=== PATIENT | male | born 1950 | race Hispanic/Latino ===

== ENCOUNTER 2017-06-10 10:45 | Inpatient (IN) | payer MEDICARE ==
[~2017-06-10] VITALS: Ht 170.2 cm; Wt 81.8 kg
[2017-06-10] MEDS ORDERED: SODIUM CHLORIDE 0.9% 1000ML 1,000 ML IV STA (11:19)
[2017-06-10] MEDS ORDERED: ONDANSETRON HCL INJ 2 MG/ML VIAL IV STA (11:19)
[2017-06-10 11:50] LABS: BASOPHILS % 0.3 % (0.0-1.0); EOSINOPHILS # (AUTO) 0.1 (0.0-0.4); EOSINOPHILS % 1.8 % (0.0-6.0); HEMATOCRIT 32.5 % (38.2-49.6); HEMOGLOBIN 11.4 g/dL (14.0-18.0); LYMPHOCYTES # (AUTO) 1.2 (1.0-3.2); LYMPHOCYTES % 15.1 % (18.0-39.1); MEAN CORPUSCULAR HEMOGLOBIN 30.1 pg (28-32); MEAN CORPUSCULAR HGB CONC 35.1 g/dL (31-35); MEAN CORPUSCULAR VOLUME 85.8 fL (81-99); MONOCYTES # (AUTO) 0.6 (0.2-0.8); MONOCYTES % 8.4 % (4.4-11.3); NEUTROPHILS # (AUTO) 5.7 (2.1-6.9); NEUTROPHILS % 74.3 % (38.7-80.0); PLATELET COUNT 171 x10e3/uL (140-360); RED BLOOD COUNT 3.79 x10e6/uL (4.3-5.7); RED CELL DISTRIBUTION WIDTH 12.3 % (11.7-14.4)
[2017-06-10 12:11] LABS: ALBUMIN 3.1 g/dL (3.5-5.0); ALBUMIN/GLOBULIN RATIO 0.7 (0.8-2.0); ANION GAP 14.5 mmol/L (8-16); CALCIUM 8.9 mg/dL (8.4-10.2); CREATININE, SERUM 5.46 mg/dL (0.72-1.25); MAGNESIUM 1.8 MG/DL (1.3-2.1); POTASSIUM 4.5 mmol/L (3.5-5.1)
[2017-06-10 12:17] LABS: CREATINE KINASE MB 5.3 ng/mL (0-5.0)
--- NOTE | 2017-06-10 12:20 | Diagnostic Imaging Report ---
PROCEDURE: CHEST SINGLE (PORTABLE) COMPARISON: None. INDICATIONS: NAUSEA, VOMITING FINDINGS: LUNGS: There is mild pulmonary vascular congestion. Low lung volumes. PLEURA: No effusions or pneumothorax. HEART \T\ MEDIASTINUM: The heart is within normal size-limits. BONES \T\ SOFT TISSUES: No acute findings. CONCLUSION: Mild pulmonary vascular congestion. Anderson Blackburn D.O. Dictated by: Anderson Blackburn D.O. on 06/10/2017 at 12:21 Electronically approved by: Anderson Blackburn D.O. on 06/10/2017 at 12:21
--- NOTE | 2017-06-10 12:23 | Diagnostic Imaging Report ---
PROCEDURE: CT ABDOMEN AND PELVIS WITHOUT CONTRAST TECHNIQUE: The abdomen and pelvis were scanned utilizing a multidetector helical scanner from the diaphragm to the lesser trochanter. No IV contrast was administered. Coronal and sagittal multiplanar reformations were obtained. COMPARISON: None. INDICATIONS: STONE PROTOCOL. Nausea, vomiting, and abdominal pain for one week. FINDINGS: ABSENCE OF INTRAVENOUS CONTRAST DECREASES SENSITIVITY FOR DETECTION OF FOCAL LESIONS AND VASCULAR PATHOLOGY. LOWER THORAX: The heart is enlarged. There atherosclerotic calcifications of the coronary arteries. Mosaic attenuation of the lung bases may be related to air trapping. HEPATOBILIARY: No focal hepatic lesions. No biliary ductal dilatation. There has been a cholecystectomy. SPLEEN: No splenomegaly. PANCREAS: No focal masses or ductal dilatation. ADRENALS: No adrenal nodules. KIDNEYS/URETERS: No hydronephrosis, stones, or solid mass lesions. A small calcification in the interpolar region of the left kidney (series 401, image 64) is felt to represent a vascular calcification rather than a stone. PELVIC ORGANS/BLADDER: The prostate gland is mildly enlarged with dystrophic calcifications. PERITONEUM / RETROPERITONEUM: No free air or fluid. LYMPH NODES: No lymphadenopathy. VESSELS: Moderate atherosclerotic calcifications of the aorta and its branches. GI TRACT: No distention or wall thickening. BONES AND SOFT TISSUES: Postsurgical changes from laminectomy and fusion of L4-S1. IMPRESSION: No specific findings to account for the patient's symptoms. No renal or ureteral stones. Dictated by: Mg Weiss M.D. on 06/10/2017 at 12:24 Electronically approved by: Mg Weiss M.D. on 06/10/2017 at 12:24
[2017-06-10] MEDS ORDERED: SODIUM CHLORIDE FLUSH 10 ML SYR INJ PRN (13:00)
[2017-06-10] MEDS ORDERED: ONDANSETRON HCL INJ 2 MG/ML VIAL IV PRN (13:00)
[2017-06-10] MEDS ORDERED: ONDANSETRON HCL 4 MG ORAL DISINTEGRATING TAB PO PRN (13:00)
[2017-06-10] MEDS: FAMOTIDINE 20 MG/2 ML VIAL IV SCH (13:30)
[2017-06-10] MEDS ORDERED: ONDANSETRON HCL 4 MG ORAL DISINTEGRATING TAB PO ONE (13:30)
[2017-06-10] MEDS ORDERED: HYDRALAZINE HCL 20 MG/ML VIAL IV STA (13:41)
--- OUTSIDE RECORDS SUMMARY | 2017-06-10 13:45 | XMS REPORT ---
[facility] Address Unknown Phone Unavailable Care Team Providers Care Ham Sawyer Name Role Phone MIKAYLA BENITEZ Unavailable Unavailable Problems This patient has no known problems. Allergies, Adverse Reactions, Alerts This patient has no known allergies or adverse reactions. Medications This patient has no known medications. Results Test Description Test Time Test Comments Text Results Atomic Results Result Comments CHEST SINGLE (PORTABLE) [place] [address] Patient Name: CARLA MCCLURE SR, I MR #: [id number] : 1950 Age/Sex: 66/M Req #: [id number] Adm Physician: Ordered by: WIL RAMIREZ COMPENSATION ADVISOR Report #: [id number] Location: ER Room/Bed: Procedure: [id number] DX/CHEST SINGLE (PORTABLE) Exam Date: 06/10/17 Exam Time: 1158 REPORT STATUS: Signed PROCEDURE: CHEST SINGLE (PORTABLE) COMPARISON: None. INDICATIONS: NAUSEA, VOMITING FINDINGS: LUNGS: There is mild pulmonary vascular congestion. Low lung volumes. PLEURA: No effusions or pneumothorax. HEART T MEDIASTINUM: The heart is within normal size-limits. BONES T SOFT TISSUES: No acute findings. CONCLUSION: Mild pulmonary vascular congestion. Fanta Blackburn D.O. Dictated by: Fanta Blackburn D.O. on 06/10/2017 at 12:21 Electronically approved by: Fanta Blackburn D.O. on 06/10/2017 at 12:21 Dictated By: FANTA BLACKBURN DO 1221 Transcribed By: EULA on 06/10/17 1221 COPY TO: WIL RAMIREZ NP CT ABDOMEN/PELVIS WO [place] [address] Patient Name: CARLA MCCLURE SR, I MR #: [id number] : 1950 Age/Sex: 66/M Req #: [id number] Adm Physician: Ordered by: WIL RAMIREZ NP Report #: [id number] Location: ER Room/Bed: Procedure: [id number] CT/CT ABDOMEN/PELVIS WO Exam Date: 06/10/17 Exam Time: 1153 REPORT STATUS: Signed PROCEDURE: CT ABDOMEN AND PELVIS WITHOUT CONTRAST TECHNIQUE: The abdomen and pelvis were scanned utilizing a multidetector helical scanner from the diaphragm to the lesser trochanter. No IV contrast was administered. Coronal and sagittal multiplanar reformations were obtained. COMPARISON: None. INDICATIONS: STONE PROTOCOL. Nausea, vomiting, and abdominal pain for one week. FINDINGS: ABSENCE OF INTRAVENOUS CONTRAST DECREASES SENSITIVITY FOR DETECTION OF FOCAL LESIONS AND VASCULAR PATHOLOGY. LOWER THORAX: The heart is enlarged. There atherosclerotic calcifications of the coronary arteries. Mosaic attenuation of the lung bases may be related to air trapping. HEPATOBILIARY: No focal hepatic lesions. No biliary ductal dilatation. There has been a cholecystectomy. SPLEEN: No splenomegaly. PANCREAS: No focal masses or ductal dilatation. ADRENALS: No adrenal nodules. KIDNEYS/URETERS: No hydronephrosis, stones, or solid mass lesions. A small calcification in the interpolar region of the left kidney (series 401, image 64) is felt to represent a vascular calcification rather than a stone. PELVIC ORGANS/BLADDER: The prostate gland is mildly enlarged with dystrophic calcifications. PERITONEUM / RETROPERITONEUM: No free air or fluid. LYMPH NODES: No lymphadenopathy. VESSELS: Moderate atherosclerotic calcifications of the aorta and its branches. GI TRACT: No distention or wall thickening. BONES AND SOFT TISSUES: Postsurgical changes from laminectomy and fusion of L4-S1. IMPRESSION: No specific findings to account for the patient's symptoms. No renal or ureteral stones. Dictated by: Pham Weiss M.D. on 06/10/2017 at 12:24 Electronically approved by: Pham Weiss M.D. on 06/10/2017 at 12:24 Dictated By: PHAM WEISS MD 1224 Transcribed By: EULA on 06/10/17 1224 COPY TO: WIL RAMIREZ NP
[2017-06-10] MEDS ORDERED: PROMETHAZINE HCL 25 MG TAB PO PRN (14:45)
--- NOTE | 2017-06-10 15:25 | Consultation ---
DATE OF CONSULTATION: June 10, 2017 REQUESTING PHYSICIAN: Dr. Pierre/Dr. Mantilla. Thank you for allowing us to participate in Mr. Walton's care. This is a 66-year-old male with a history of CKD that has been progressive. Creatinine was 3.3 in February, and now up to 5. Actually, outpatient labs have been reviewed at [facility]. Also, the chemistries were similar within the last week or 2. He has had some nausea. Appetite is somewhat reasonable. Has been vomiting on and off. Has minimal swelling. There was some miscommunication with followup with the renal office. That has now been settled. Denies any trouble breathing. He is able to lay flat. PAST HISTORY: CKD, 4, likely is now CKD, stage 5, presumed diabetic nephropathy, hypertension, prior remote history of NSAID use when he had a disk injury, history of disability, cataracts have been removed. HOME MEDICATIONS: Please see list. FAMILY HISTORY: Diabetes. REVIEW OF SYSTEMS CONSTITUTIONAL: No fever or chills. NEURO: Feels weak. HEENT: Bright lights affect him after the cataract surgery. CARDIAC: No dizziness or syncope. RESPIRATORY: No cough or hemoptysis. : Denies hematuria or dysuria. The rest of the review is negative. PHYSICAL EXAMINATION GENERAL: Laying in bed in no distress. VITALS: Pulse 62, blood pressure 194/97, temperature 98. HEENT: Atraumatic. NECK: No JVD. CHEST: Clear. Bilateral breath sounds are equal. CARDIAC: Normal heart tones. S4 is present. EXTREMITIES: Trace edema. NEURO: Appears to be alert and appropriate. Speech is normal. SKIN: Intact on exposed areas. CT scan with no hydronephrosis. Chest x-ray shows congestion. Hemoglobin 11.4. Potassium 4.5, serum CO2 20, creatinine 5.46 and is in keeping with the outpatient blood tests. BUN 76. ASSESSMENT 1. End-stage renal disease: Volume status somewhat difficult to assess. He may be at risk for fluid overload given chest x-ray findings. 2. Metabolic acidosis. 3. 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 4. Acute kidney injury cannot be ruled out. PLAN: He has got some fluids. Will hold after this bag. Start low-dose Lasix p.o. Protect left arm. Will request a tunneled dialysis catheter. Most likely, this will be a long-term event. Dialysis needs to be started, and I do not think we need to risk 2 procedures by placing a temporary dialysis catheter and subsequently swapping it over. P.r.n. Phenergan. Check urine studies, PTH, serum protein electrophoresis, uric acid levels, phosphorus levels, serial chemistries. Will follow along. Job#: [id number] RI
[2017-06-10 16:05] VITALS: BP 186/86
[2017-06-10] MEDS ORDERED: FERROUS SULFAT325 M1 PO (16:11)
[2017-06-10] MEDS ORDERED: ATORVASTATIN CA20 MG PO (16:11)
[2017-06-10] MEDS ORDERED: CARVEDILOL12.5 MG PO (16:11)
[2017-06-10] MEDS ORDERED: FUROSEMIDE40 MG PO (16:11)
[2017-06-10] MEDS ORDERED: AMLODIPINE BESYL5 MG PO (16:11)
[2017-06-10 16:51] VITALS: BP 186/86
[2017-06-10 16:59] VITALS: BP 186/86
[2017-06-10] MEDS: SODIUM BICARBONATE 650 MG TAB PO SCH (17:00)
[2017-06-10 20:00] VITALS: BP 178/83
[2017-06-10] MEDS ORDERED: LIDOCAINE HCL 2% LOCAL INJ 5 ML SDV VIAL INJ ONE (20:03)
[2017-06-10] MEDS ORDERED: SEVOFLURANE INHAL SOLN 250 ML PEN BTL ONE (20:03)
[2017-06-10] MEDS ORDERED: ONDANSETRON HCL INJ 2 MG/ML VIAL ONE (20:03)
[2017-06-10] MEDS ORDERED: PROPOFOL IV EMULSION 10 MG/ML 20 ML VIAL ONE (20:03)
[2017-06-10] MEDS ORDERED: DEXAMETHASONE SOD PHOS INJ 4 MG/ML VIAL ONE (20:03)
[2017-06-10] MEDS ORDERED: METOCLOPRAMIDE HCL 10 MG/2ML VIAL ONE (20:03)
[2017-06-10 21:30] VITALS: BP 178/83
[2017-06-11] VITALS (7 sets, daily range): BP systolic 128–199; BP diastolic 61–93
[2017-06-11] MEDS: FAMOTIDINE 20 MG/2 ML VIAL IV SCH (01:27)
--- NOTE | 2017-06-11 07:39 | Diagnostic Imaging Report ---
EXAMINATION: Chest, CHEST SINGLE (PORTABLE) INDICATION: Chest pain COMPARISON: Portable chest 06/10/2017 FINDINGS: LINES: None. Heart: Normal cardiac silhouette. Vascular: The pulmonary vasculature is within normal limits. Mediastinum: No mediastinal, hilar, or axillary mass or lymphadenopathy. Lungs: No parenchymal mass. No focal consolidation. Pleura: No pleural effusion. No pneumothorax. Bones: No acute osseous abnormality. Degenerative changes of the thoracic spine. Soft tissues: Normal. Impression: No acute radiographic abnormality. Signed by: Dr. Gal Martínez M.D. on 06/11/2017 7:35 AM
[2017-06-11 08:08] LABS: BASOPHILS % 0.3 % (0.0-1.0); EOSINOPHILS # (AUTO) 0.1 (0.0-0.4); EOSINOPHILS % 1.7 % (0.0-6.0); LYMPHOCYTES # (AUTO) 1.3 (1.0-3.2); LYMPHOCYTES % 15.9 % (18.0-39.1); MEAN CORPUSCULAR HEMOGLOBIN 29.6 pg (28-32); MEAN CORPUSCULAR HGB CONC 34.4 g/dL (31-35); MONOCYTES # (AUTO) 0.7 (0.2-0.8); MONOCYTES % 8.7 % (4.4-11.3); NEUTROPHILS # (AUTO) 5.8 (2.1-6.9); NEUTROPHILS % 73.1 % (38.7-80.0); PLATELET COUNT 176 x10e3/uL (140-360); RED BLOOD COUNT 3.72 x10e6/uL (4.3-5.7); RED CELL DISTRIBUTION WIDTH 12.4 % (11.7-14.4)
[2017-06-11 08:21] LABS: INR 1.2; PROTHROMBIN TIME 14.3 seconds (11.9-14.5)
[2017-06-11 08:22] LABS: PARTIAL THROMBOPLASTIN TIME 28.6 seconds (23.8-35.5)
[2017-06-11 08:29] LABS: ALBUMIN/GLOBULIN RATIO 0.8 (0.8-2.0); ANION GAP 15.4 mmol/L (8-16); CALCIUM 8.6 mg/dL (8.4-10.2); CHOL/HDL RATIO 4.5 (3.9-4.7); CREATININE, SERUM 5.47 mg/dL (0.72-1.25); POTASSIUM 4.4 mmol/L (3.5-5.1)
[2017-06-11 08:42] LABS: CREATINE KINASE MB 4.4 ng/mL (0-5.0)
[2017-06-11] MEDS ORDERED: FUROSEMIDE INJ 10 MG/ML 2 ML VIAL IV SCH (09:00)
[2017-06-11] MEDS ORDERED: CARVEDILOL 12.5 MG TAB PO SCH (09:00)
[2017-06-11] MEDS ORDERED: AMLODIPINE BESYLATE 5 MG TAB PO SCH (09:00)
[2017-06-11 09:14] LABS: PHOSPHORUS 4.8 MG/DL (2.3-4.7)
[2017-06-11] MEDS: SODIUM BICARBONATE 650 MG TAB PO SCH ×2 (10:17→16:16)
[2017-06-11] MEDS ORDERED: NIFEDIPINE CR 30 MG TAB PO ONE (11:30)
[2017-06-11 11:38] LABS: CLARITY,URINE CLEAR (CLEAR); COLOR,URINE YELLOW (YELLOW)
[2017-06-11 11:39] LABS: LEUKOCYTE ESTERASE ,URINE NEGATIVE (NEGATIVE); NITRITE,URINE NEGATIVE (NEGATIVE); PROTEIN,URINE DIPSTICK 3+ (NEGATIVE)
[2017-06-11 11:40] LABS: BILIRUBIN,URINE NEGATIVE (NEGATIVE); KETONES,URINE NEGATIVE (NEGATIVE); URINE UROBILINOGEN 0.2 mg/dL (0.2 - 1)
[2017-06-11 11:53] LABS: WBC,URINE (MAN) 0-5 /HPF (0-5)
[2017-06-11 11:54] LABS: BACTERIA,URINE FEW /HPF; EPITHELIAL CELLS,URINE FEW /LPF
[2017-06-11] MEDS: HYDRALAZINE HCL 25 MG TAB PO PRN (15:41)
[2017-06-11] MEDS: CARVEDILOL 12.5 MG TAB PO SCH (16:15)
[2017-06-11] MEDS: NIFEDIPINE CR 30 MG TAB PO SCH (16:16)
[2017-06-12] VITALS (7 sets, daily range): BP systolic 137–163; BP diastolic 65–80
[2017-06-12 08:33] LABS: CALCIUM 8.3 mg/dL (8.4-10.2); CREATININE, SERUM 5.9 mg/dL (0.72-1.25)
[2017-06-12 08:34] LABS: MAGNESIUM 1.5 MG/DL (1.3-2.1)
[2017-06-12 08:42] LABS: THYROID STIMULATING HORMONE 0.538 uIU/mL (0.350-4.940)
[2017-06-12 08:55] LABS: FOLATE 9.4 ng/mL (7.0-15.4)
[2017-06-12] MEDS: CARVEDILOL 12.5 MG TAB PO SCH ×2 (08:57→16:55)
[2017-06-12] MEDS: NIFEDIPINE CR 30 MG TAB PO SCH ×2 (08:58→16:55)
[2017-06-12] MEDS: SODIUM BICARBONATE 650 MG TAB PO SCH ×2 (08:58→16:55)
[2017-06-12] MEDS ORDERED: AMLODIPINE BESYLATE 5 MG TAB PO SCH (09:00)
[2017-06-12] MEDS ORDERED: LANTUS 3ML100 UNITS/ SC (09:48)
[2017-06-12] MEDS ORDERED: NOVOLOG100 UNIT/1 SC (09:48)
[2017-06-12] MEDS ORDERED: DEXTROSE 50% SYRINGE 50 ML IV PRN (10:00)
[2017-06-12] MEDS ORDERED: NIFEDIPINE CR 30 MG TAB PO ONE (10:30)
[2017-06-12] MEDS: INSULIN LISPRO 100 UNIT/1 ML 3ML VIAL SQ SCH ×5 (11:45→22:34)
[2017-06-12] MEDS: ATORVASTATIN 40 MG TAB PO SCH (22:34)
[2017-06-12] MEDS: INSULIN DETEMIR 100 UNIT/ML PEN SQ SCH (22:34)
[2017-06-13] VITALS (11 sets, daily range): BP systolic 142–183; BP diastolic 66–91
[2017-06-13] MEDS: INSULIN LISPRO 100 UNIT/1 ML 3ML VIAL SQ SCH ×7 (07:30→21:00)
[2017-06-13] MEDS ORDERED: SODIUM CHLORIDE 0.9% 500ML 500 ML ONE (09:41)
[2017-06-13] MEDS ORDERED: LIDOCAINE HCL 2% LOCAL 20 ML VIAL ONE (09:41)
[2017-06-13] MEDS ORDERED: SODIUM CHLORIDE 0.9% 250ML 250 ML ONE (10:00)
[2017-06-13 10:16] LABS: ANION GAP 14.8 mmol/L (8-16); CALCIUM 7.8 mg/dL (8.4-10.2); CREATININE, SERUM 6.09 mg/dL (0.72-1.25); POTASSIUM 3.8 mmol/L (3.5-5.1)
[2017-06-13] MEDS ORDERED: MIDAZOLAM HCL 2 MG/2 ML VIAL ONE (11:21)
[2017-06-13] MEDS ORDERED: FENTANYL CITRATE/PF 100MCG/2 ML INJ ONE (11:22)
[2017-06-13] MEDS ORDERED: HEPARIN SOD (PORCINE) 1000 UNIT/ML 30ML ONE (11:24)
[2017-06-13] MEDS: SODIUM BICARBONATE 650 MG TAB PO SCH ×2 (11:59→18:11)
[2017-06-13] MEDS: CARVEDILOL 12.5 MG TAB PO SCH ×2 (12:13→18:11)
[2017-06-13] MEDS: NIFEDIPINE CR 30 MG TAB PO SCH ×2 (12:13→18:11)
[2017-06-13 16:31] LABS: ALPHA 2 GLOBULIN URINE PEP 6.2 % (.)
[2017-06-13] MEDS ORDERED: ALBUMIN HUMAN 12.5GM / 50ML IV PRN (16:45)
[2017-06-13] MEDS ORDERED: HEPARIN SOD (PORCINE) 1000 UNIT/ML SDV IV PRN (16:45)
[2017-06-13] MEDS ORDERED: MANNITOL 25% 12.5GM/50 ML VIAL IV PRN (16:45)
[2017-06-13] MEDS ORDERED: SODIUM CHLORIDE 0.9% 250ML 500 ML IV PRN (16:45)
[2017-06-13] MEDS ORDERED: SODIUM CHLORIDE 0.9% 1000ML 2,000 ML IV PRN (16:45)
[2017-06-13] MEDS: INSULIN DETEMIR 100 UNIT/ML PEN SQ SCH (21:00)
[2017-06-13] MEDS: ATORVASTATIN 40 MG TAB PO SCH (21:31)
[2017-06-13] MEDS: HYDRALAZINE HCL 25 MG TAB PO PRN (23:55)
[2017-06-14 05:41] VITALS: BP 149/73
[2017-06-14 07:40] VITALS: BP 149/73
[2017-06-14 07:44] LABS: ANION GAP 10.5 mmol/L (8-16); CALCIUM 8.3 mg/dL (8.4-10.2); CREATININE, SERUM 5.04 mg/dL (0.72-1.25); POTASSIUM 4.5 mmol/L (3.5-5.1)
[2017-06-14 07:50] VITALS: BP 149/76
[2017-06-14] MEDS: CARVEDILOL 12.5 MG TAB PO SCH ×2 (08:23→17:32)
[2017-06-14] MEDS: NIFEDIPINE CR 30 MG TAB PO SCH ×2 (08:23→17:32)
[2017-06-14] MEDS: SODIUM BICARBONATE 650 MG TAB PO SCH ×2 (08:23→17:32)
[2017-06-14] MEDS: ACETAMINOPHEN 325 MG TAB PO PRN (08:30)
[2017-06-14] MEDS: INSULIN LISPRO 100 UNIT/1 ML 3ML VIAL SQ SCH ×7 (08:32→20:16)
[2017-06-14] MEDS ORDERED: HEPARIN SOD (PORCINE) 1000 UNIT/ML SDV IV PRN (10:30)
[2017-06-14 11:25] VITALS: BP 130/67
[2017-06-14 15:33] VITALS: BP 135/77
[2017-06-14 20:00] VITALS: BP 135/67
[2017-06-14] MEDS: INSULIN DETEMIR 100 UNIT/ML PEN SQ SCH (20:26)
[2017-06-14] MEDS: ATORVASTATIN 40 MG TAB PO SCH (20:26)
[2017-06-15] VITALS (8 sets, daily range): BP systolic 121–153; BP diastolic 64–74
--- NOTE | 2017-06-15 07:27 | Consultation ---
DATE OF CONSULTATION: June 15, 2017 REFERRING PHYSICIAN: Dr. Ramirez Patient is a 66-year-old male who has been started on hemodialysis for end-stage renal disease. He currently has a tunneled catheter for dialysis, but he needs access for long-term hemodialysis. PAST MEDICAL HISTORY: Significant for chronic kidney disease which has now progressed to end-stage disease with diabetes and hypertension. MEDICATIONS: Listed in the chart. ALLERGIES: HE HAS NO KNOWN ALLERGIES. PREVIOUS SURGERIES: Include previous cholecystectomy. FAMILY HISTORY: Significant for diabetes. SOCIAL HISTORY: The patient does not smoke cigarettes or drink alcohol. REVIEW OF SYSTEMS: Is as stated above. He has no chest pain. No shortness of breath at this time. PHYSICAL EXAMINATION GENERAL: The patient is awake and alert. VITALS: Normal. EXTREMITIES: Significant findings in the left arm, the patient does not have a palpable radial pulse. He has a good brachial pulse. Peripheral veins are adequate for a fistula. There is slight edema. ASSESSMENT: A 66-year-old male now with end-stage renal disease and needs access for long-term hemodialysis. PLAN: Left arm arteriovenous fistula to be done tomorrow. Likely, this will be brachiocephalic. Procedure was explained to the patient, including risks, benefits and alternatives. He understands the procedure. He has had the opportunity to ask questions. Thank you for asking me to see Mr. Walton. Job#: [id number] DANYEL
[2017-06-15] MEDS: INSULIN LISPRO 100 UNIT/1 ML 3ML VIAL SQ SCH ×7 (07:30→21:00)
[2017-06-15] MEDS: CARVEDILOL 12.5 MG TAB PO SCH ×2 (08:00→18:01)
[2017-06-15] MEDS: SODIUM BICARBONATE 650 MG TAB PO SCH ×2 (09:00→18:01)
[2017-06-15] MEDS: NIFEDIPINE CR 30 MG TAB PO SCH ×2 (09:00→18:01)
[2017-06-15 10:32] LABS: BASOPHILS % 0.3 % (0.0-1.0); EOSINOPHILS # (AUTO) 0.2 (0.0-0.4); EOSINOPHILS % 2.4 % (0.0-6.0); HEMATOCRIT 28.6 % (38.2-49.6); LYMPHOCYTES # (AUTO) 1.5 (1.0-3.2); LYMPHOCYTES % 17.1 % (18.0-39.1); MEAN CORPUSCULAR HEMOGLOBIN 30.5 pg (28-32); MEAN CORPUSCULAR VOLUME 87.2 fL (81-99); MONOCYTES % 10.6 % (4.4-11.3); NEUTROPHILS # (AUTO) 6.2 (2.1-6.9); NEUTROPHILS % 69.4 % (38.7-80.0); PLATELET COUNT 151 x10e3/uL (140-360); RED BLOOD COUNT 3.28 x10e6/uL (4.3-5.7); RED CELL DISTRIBUTION WIDTH 11.9 % (11.7-14.4)
[2017-06-15 10:41] LABS: CALCIUM 8.4 mg/dL (8.4-10.2); CREATININE, SERUM 4.82 mg/dL (0.72-1.25)
[2017-06-15] MEDS: ACETAMINOPHEN 325 MG TAB PO PRN (21:30)
[2017-06-15] MEDS: ATORVASTATIN 40 MG TAB PO SCH (21:44)
[2017-06-15] MEDS: INSULIN DETEMIR 100 UNIT/ML PEN SQ SCH (21:45)
[2017-06-16] VITALS (7 sets, daily range): BP systolic 146–186; BP diastolic 69–81
[2017-06-16] MEDS: INSULIN LISPRO 100 UNIT/1 ML 3ML VIAL SQ SCH ×7 (07:30→21:30)
[2017-06-16 08:51] LABS: ANION GAP 11.9 mmol/L (8-16); CALCIUM 8.8 mg/dL (8.4-10.2); CREATININE, SERUM 4.06 mg/dL (0.72-1.25); POTASSIUM 3.9 mmol/L (3.5-5.1)
[2017-06-16] MEDS: SODIUM BICARBONATE 650 MG TAB PO SCH ×2 (09:30→18:00)
[2017-06-16] MEDS: CARVEDILOL 12.5 MG TAB PO SCH ×2 (09:30→18:00)
[2017-06-16] MEDS: NIFEDIPINE CR 30 MG TAB PO SCH ×2 (09:30→18:00)
[2017-06-16] MEDS ORDERED: HEPARIN SOD (PORCINE) 1000 UNIT/ML 30ML ONE (12:25)
[2017-06-16] MEDS ORDERED: SODIUM CHLORIDE 0.9% 500ML 0 ML ONE (12:25)
[2017-06-16] MEDS ORDERED: GELATIN SPONGE SZ 100 ONE (12:26)
[2017-06-16] MEDS ORDERED: SODIUM CHLORIDE 0.9% 500ML 500 ML ONE (13:43)
[2017-06-16] MEDS ORDERED: MORPHINE SULFATE 2 MG/ML SYR IV PRN (15:30)
[2017-06-16] MEDS ORDERED: MORPHINE SULFATE 4 MG/ML SYR IV PRN (15:30)
--- NOTE | 2017-06-16 15:52 | Operative Report ---
DATE OF PROCEDURE: June 16, 2017 PREOPERATIVE DIAGNOSIS: End-stage renal disease. POSTOPERATIVE DIAGNOSIS: End-stage renal disease. PROCEDURE PERFORMED: Creation of left arm primary brachiocephalic arteriovenous fistula. PETROLEUM SAMPLER: None ANESTHESIA: General. INDICATIONS AND FINDINGS: Patient is a 66-year-old male with end-stage renal disease and needs access for long-term hemodialysis. At surgery, the patient was found to have a good pulse in the brachial artery. However, there was no pulse in the left radial artery. There was a large cephalic vein in the antecubital area, which was used for the fistula. At the end of the procedure, there was palpable thrill over the fistula, palpable pulse in the brachial artery distal to the fistula. TECHNIQUE: After adequate general anesthesia with the patient in the supine position, the left arm was prepped and draped in a sterile fashion with Walton solution. A transverse incision was made in the antecubital area and carried down through the subcutaneous tissue. Cephalic vein was dissected free and controlled vessel loop. It was dissected free proximally and distally as much as possible. Side branches were ligated with Hemoclips. The vein was of good caliber and about 4 mm in diameter. More medially, the incision was carried deeper and the brachial artery was dissected free and controlled with vessel loops. The cephalic vein was then divided distally as possible. A #3 Rosendo catheter was passed through the vein and passed easily without resistance. The distal cephalic vein was ligated with Hemoclips. The vein was fashioned appropriately. Patient was given 5000 units of intravenous heparin. The brachial artery was clamped proximally and distally. Arteriotomy was made. Anastomosis was made between the end of the vein and the side of the artery with a running suture of 6-0 Prolene. Once flow was allowed through the fistula, there was a palpable thrill over the fistula, palpable pulse in the brachial artery distal to the fistula. A small amount of bleeding from one area on the anastomosis was controlled with a suture of 7-0 Prolene. Hemostasis was achieved. The wound was inspected for hemostasis, which was seen to be adequate. The wound was then closed with 3-0 Vicryl for the subcutaneous tissue and rene for the skin. Sterile dressing was applied. The patient tolerated the procedure well. Estimated blood loss was 40 mL. There were no complications. All counts were correct. Patient was taken to the recovery room in satisfactory condition. Job#: [id number] RI cc:MD NORMA BURNETTE MD
[2017-06-16] MEDS: HYDROCODONE/APAP 5MG-325MG TAB PO PRN (17:30)
[2017-06-16] MEDS ORDERED: FENTANYL CITRATE/PF 100MCG/2 ML INJ ONE (18:43)
[2017-06-16] MEDS ORDERED: MIDAZOLAM HCL 2 MG/2 ML VIAL ONE (18:43)
[2017-06-16] MEDS: ATORVASTATIN 40 MG TAB PO SCH (21:28)
[2017-06-16] MEDS: INSULIN DETEMIR 100 UNIT/ML PEN SQ SCH (21:31)
[2017-06-17] VITALS: BP 143/69
[2017-06-17] MEDS: HYDROCODONE/APAP 5MG-325MG TAB PO PRN (01:30)
[2017-06-17 04:00] VITALS: BP 161/77
[2017-06-17 08:09] VITALS: BP 146/70
[2017-06-17] MEDS: CARVEDILOL 12.5 MG TAB PO SCH (08:38)
[2017-06-17] MEDS: SODIUM BICARBONATE 650 MG TAB PO SCH (08:38)
[2017-06-17] MEDS: INSULIN LISPRO 100 UNIT/1 ML 3ML VIAL SQ SCH ×4 (08:38→12:12)
[2017-06-17] MEDS: NIFEDIPINE CR 30 MG TAB PO SCH (08:39)
[2017-06-17 09:29] VITALS: BP 146/70
[2017-06-17] MEDS ORDERED: CARVEDILOL12.5 MG PO (09:55)
[2017-06-17] MEDS ORDERED: NIFEDIPINE ER30 M1 PO (11:52)
[2017-06-17] MEDS ORDERED: ZOFRAN ODT4 MG SL (11:53)
[2017-06-17] MEDS ORDERED: TYLENOL WITH C1 EACH PO (11:53)
[2017-06-17 11:55] VITALS: BP 136/65
--- NOTE | 2017-06-22 15:05 | Diagnostic Imaging Report ---
Date and Time: 06/13/2017 Procedure: Right internal jugular tunneled hemodialysis catheter placement granulating machine operator: Dr. Parekh Pre-operative diagnosis: ESRD Post-operative diagnosis: ESRD Conscious Sedation: Versed 1.5 mg and Fentanyl 75 mcg. The patient's heart rate and pulse oximetry were continuously monitored by the interventional radiology nurse. Blood pressure was monitored at 5 minute intervals. Additional Medications: Lidocaine 1% for local anesthesia Fluoroscopy time: 1.4 minutes Dose-area Product: 314.3 cGycm2. Contrast used: None Estimated blood loss: Less than 5 cc Specimens: None Implants: 16 Norwegian 19 cm tip-cuff tunneled hemodialysis catheter Condition at completion of procedure: Stable Disposition: Catheter lab holding Procedure in detail: Informed consent for the procedure was obtained from the patient after discussion of risks and benefits. The right neck and upper chest was prepped and draped in the standard sterile fashion after the patient was placed in the supine position on the fluoroscopic table. 1% lidocaine was administered into the skin and subcutaneous tissues of the right lower neck for local anesthesia. Then, under continuous sonographic guidance, a 21-gauge micropuncture needle was advanced into the right internal jugular vein. A 0.018 inch wire was advanced centrally under fluoroscopic guidance. The needle was then removed and access was secured with a micropuncture sheath. Intravascular length to the upper right atrium was determined using the microwire, which was then removed along with the inner dilator of the micropuncture sheath. A 0.035 inch Amplatz wire was then advanced through the micropuncture sheath into the inferior vena cava under fluoroscopic guidance. Attention was then turned to the right upper chest. A suitable catheter exit site was determined, approximately 3 fingerbreadths inferior to the clavicle. The skin was marked. 1% lidocaine was used to anesthetize a subcutaneous tract extending from the planned catheter exit site to the venotomy at the right lower neck. A stab incision was made on the right upper chest. Subsequently, the catheter was tunneled from the exit site of the right upper chest to the venotomy at the right lower neck. The retention cuff of the catheter was advanced well into the subcutaneous tunnel. The micropuncture sheath was then removed over the wire and the tract was serially dilated. Finally, a 16.5-Norwegian peel-away sheath was advanced over the wire under fluoroscopic guidance. The wire and inner dilator of the sheath were removed and the catheter was advanced through the peel-away sheath, which was then broken and removed. The catheter tip was positioned in the upper right atrium. Each catheter lumen showed good bidirectional flow. Each lumen was then packed with 2500 units of heparin. The catheter was secured at the exit site on the right upper chest with monofilament nylon suture. The venotomy at the right lower neck was closed with tissue adhesive. A sterile dressing was applied. The patient tolerated the procedure well without immediate complication. FINDINGS: Patent right internal jugular vein IMPRESSION: Successful placement of a 16 Norwegian, 19 cm tip-cuff tunneled hemodialysis catheter by a right internal jugular approach. Signed by: Dr. Tony Parekh M.D. on 06/15/2017 9:03 AM
== END 2017-06-17 13:12 | disposition home or self-care (01) | DRG 673 ==
LOC: ER 10:45 → ERHOLD 13:43 → MED/SURG 14:02
PROVIDERS: ADMIT Internal Medicine; ATTEND Internal Medicine
PROC: 5A1D70Z Performance of Urinary Filtration, Intermittent, Less than 6 Hours Per Day (ICD-10-PCS; principal; 2017-06-12)
PROC: 0JH63XZ Insertion of Tunneled Vascular Access Device into Chest Subcutaneous Tissue and Fascia, Percutaneous Approach (ICD-10-PCS; 2017-06-13)
PROC: 06H033Z Insertion of Infusion Device into Inferior Vena Cava, Percutaneous Approach (ICD-10-PCS; 2017-06-13)
PROC: B5191ZA Fluoroscopy of Inferior Vena Cava using Low Osmolar Contrast, Guidance (ICD-10-PCS; 2017-06-13)
PROC: 5A1D70Z Performance of Urinary Filtration, Intermittent, Less than 6 Hours Per Day (ICD-10-PCS; 2017-06-14)
PROC: 5A1D70Z Performance of Urinary Filtration, Intermittent, Less than 6 Hours Per Day (ICD-10-PCS; 2017-06-15)
PROC: 03180ZD Bypass Left Brachial Artery to Upper Arm Vein, Open Approach (ICD-10-PCS; 2017-06-16)
DX: I12.0 Hypertensive chronic kidney disease with stage 5 chronic kidney disease or end stage renal disease (principal); N18.6 End stage renal disease; N17.9 Acute kidney failure, unspecified; E87.2 Acidosis; Z99.2 Dependence on renal dialysis; E11.22 Type 2 diabetes mellitus with diabetic chronic kidney disease; E11.21 Type 2 diabetes mellitus with diabetic nephropathy; Z79.4 Long term (current) use of insulin; D64.9 Anemia, unspecified
CPT/HCPCS: 36415; 36565; 71045; 74176; 74470; 77001; 80048; 80053; 80061; 81001; 81015; 82150; 82270; 82550; 82553; 82607; 82746; 82948; 83036; 83540; 83690; 83735; 83880; 83970; 84100; 84165; 84166; 84443; 84466; 84484; 84550; 85025; 85610; 85730; 86704; 86705; 86707; 87340; 90962; 93005; 96372; 99284; C1750; C1751; C1769; J0360; J1100; J1644; J1940; J2001; J2150; J2250; J2405; J2765; J7030; J7040; J7050

== ENCOUNTER 2020-01-29 10:21 | Emergency (ER) | payer MEDICARE ==
[~2020-01-29] VITALS: Ht 170.2 cm; Wt 81.6 kg
[~2020-01-29 10:21] MED LIST: AMLODIPINE BESYL5 MG PO; ATORVASTATIN CA20 MG PO; CARVEDILOL12.5 MG PO; FERROUS SULFAT325 M1 PO; FUROSEMIDE40 MG PO; LANTUS 3ML100 UNITS/ SC; NIFEDIPINE ER30 M1 PO; NOVOLOG100 UNIT/1 SC; TYLENOL WITH C1 EACH PO; ZOFRAN ODT4 MG SL
[2020-01-29 11:00] LABS: BASOPHILS # (AUTO) 0.1 (0.0-0.1); BASOPHILS % 0.5 % (0.0-1.0); EOSINOPHILS # (AUTO) 0.1 (0.0-0.4); EOSINOPHILS % 1.3 % (0.0-6.0); HEMATOCRIT 39.4 % (38.2-49.6); HEMOGLOBIN 12.9 g/dL (14.0-18.0); LYMPHOCYTES # (AUTO) 1.8 (1.0-3.2); LYMPHOCYTES % 17.5 % (18.0-39.1); MEAN CORPUSCULAR HEMOGLOBIN 26.9 pg (28-32); MEAN CORPUSCULAR HGB CONC 32.7 g/dL (31-35); MEAN CORPUSCULAR VOLUME 82.1 fL (81-99); MONOCYTES # (AUTO) 0.8 (0.2-0.8); MONOCYTES % 7.9 % (4.4-11.3); NEUTROPHILS # (AUTO) 7.5 (2.1-6.9); NEUTROPHILS % 72.5 % (38.7-80.0); PLATELET COUNT 235 x10e3/uL (140-360); RED CELL DISTRIBUTION WIDTH 12.2 % (11.7-14.4)
[2020-01-29 11:20] LABS: ALBUMIN 4.3 g/dL (3.5-5.0); ANION GAP 19.4 mmol/L (8-16); CALCIUM 9.2 mg/dL (8.4-10.2); CREATININE, SERUM 3.26 mg/dL (0.72-1.25); POTASSIUM 3.4 mmol/L (3.5-5.1)
[2020-01-29 16:40] VITALS: BP 168/84
== END 2020-01-29 16:41 | disposition home or self-care (01) ==
LOC: ER 11:03
DX: R07.9 Chest pain, unspecified (principal); R94.31 Abnormal electrocardiogram [ECG] [EKG]; I12.9 Hypertensive chronic kidney disease with stage 1 through stage 4 chronic kidney disease, or unspecified chronic kidney disease; E11.22 Type 2 diabetes mellitus with diabetic chronic kidney disease; N18.9 Chronic kidney disease, unspecified; Z99.2 Dependence on renal dialysis; E78.5 Hyperlipidemia, unspecified; Z20.828 Contact with and (suspected) exposure to other viral communicable diseases
CPT/HCPCS: 36415; 71045; 80053; 83690; 83880; 84484; 85025; 93005; 99284; U0002

== ENCOUNTER 2024-03-13 07:05 | Emergency (ER) | payer MEDICARE ==
[~2024-03-13] VITALS: Ht 170.2 cm; Wt 81.6 kg
[2024-03-13 07:10] VITALS: TEMP 98.1
[2024-03-13 07:52] LABS: BASOPHILS % 0.2 % (0.0-1.0); EOSINOPHILS # (AUTO) 0.1 (0.0-0.4); EOSINOPHILS % 0.7 % (0.0-6.0); HEMATOCRIT 32.3 % (38.2-49.6); HEMOGLOBIN 10.4 g/dL (14.0-18.0); LYMPHOCYTES # (AUTO) 1.4 (1.0-3.2); LYMPHOCYTES % 12.4 % (18.0-39.1); MEAN CORPUSCULAR HEMOGLOBIN 31.8 pg (28-32); MEAN CORPUSCULAR HGB CONC 32.2 g/dL (31-35); MEAN CORPUSCULAR VOLUME 98.8 fL (81-99); MONOCYTES % 9.4 % (4.4-11.3); NEUTROPHILS # (AUTO) 8.5 (2.1-6.9); NEUTROPHILS % 76.8 % (38.7-80.0); PLATELET COUNT 195 x10e3/uL (140-360); RED BLOOD COUNT 3.27 x10e6/uL (4.3-5.7); RED CELL DISTRIBUTION WIDTH 12.3 % (11.7-14.4); WHITE BLOOD COUNT 11.04 x10e3/uL (4.8-10.8)
[2024-03-13 08:19] LABS: ALBUMIN 3.7 g/dL (3.5-5.0); ALBUMIN/GLOBULIN RATIO 0.8 (0.8-2.0); ANION GAP 24.9 mmol/L (8-16); BILIRUBIN,TOTAL 0.3 mg/dL (0.2-1.2); CALCIUM 9.3 mg/dL (8.4-10.2); CREATININE, SERUM 11.23 mg/dL (0.72-1.25); POTASSIUM 4.9 mmol/L (3.5-5.1); TOTAL PROTEIN 8.3 g/dL (6.5-8.1)
[2024-03-13] MEDS: ONDANSETRON HCL INJ 2MG/ML 2ML 2 MG/ML VIAL IV STA (08:32)
[2024-03-13] MEDS: Morphine 2mg Syringe 2 MG/ML SYR IV ONE (08:48)
[2024-03-13 09:31] LABS: BILIRUBIN,URINE NEGATIVE (NEGATIVE); CLARITY,URINE CLEAR (CLEAR); COLOR,URINE YELLOW (YELLOW); GLUCOSE, URINE 1+ (NEGATIVE); KETONES,URINE NEGATIVE (NEGATIVE); LEUKOCYTE ESTERASE ,URINE NEGATIVE (NEGATIVE); NITRITE,URINE NEGATIVE (NEGATIVE); PH,URINE 8.5 (5 - 7); PROTEIN,URINE DIPSTICK >=300 (NEGATIVE); URINE UROBILINOGEN 0.2 mg/dL (0.2 - 1)
[2024-03-13 09:33] LABS: BACTERIA,URINE RARE /HPF; EPITHELIAL CELLS,URINE RARE /LPF; WBC,URINE (MAN) 0-5 /HPF (0-5)
[2024-03-13 11:00] VITALS: PULSE 76; RESP 18
[2024-03-13 11:19] VITALS: BP 169/69; PULSE 77; RESP 16; O2SAT 99
== END 2024-03-13 11:21 | disposition home or self-care (01) ==
LOC: ER 07:10
DX: R10.11 Right upper quadrant pain (principal); I12.0 Hypertensive chronic kidney disease with stage 5 chronic kidney disease or end stage renal disease; E11.22 Type 2 diabetes mellitus with diabetic chronic kidney disease; N18.6 End stage renal disease; Z99.2 Dependence on renal dialysis; D64.9 Anemia, unspecified
CPT/HCPCS: 36415; 71046; 74176; 80053; 81001; 83690; 85025; 99284; J2270; J2405; 93005